=== PATIENT | female | born 1930 | race Caucasian/White ===

== ENCOUNTER 2017-11-13 15:16 | Inpatient (IN) | payer MEDICARE, BC ==
[2017-11-13] MEDS: ACETAMINOPHEN 325 MG TAB PO ×2 (16:31→22:44)
[2017-11-13 16:40] LABS: ADD MAN DIFF? NO
[2017-11-13 16:43] LABS: BASOPHILS % 0.7 % (0.0-2.0); EOSINOPHILS # 0.3 10^3/ul (0.0-0.5); EOSINOPHILS % 5.4 % (0.0-7.0); HEMATOCRIT 42.4 % (37.0-47.0); HEMOGLOBIN 13.9 g/dl (12.0-16.0); LYMPHOCYTES # 1.2 10^3/ul (0.8-2.9); LYMPHOCYTES % 18.9 % (15.0-51.0); MEAN CORPUSCULAR HEMOGLOBIN 32.2 pg (29.0-33.0); MEAN CORPUSCULAR HGB CONC 32.8 g/dl (32.0-37.0); MEAN CORPUSCULAR VOLUME 98.1 fl (82.0-101.0); MEAN PLATELET VOLUME 10.2 fl (7.4-10.4); MONOCYTE # 0.6 10^3/ul (0.3-0.9); MONOCYTES % 10.2 % (0.0-11.0); NEUTROPHIL # 3.9 10^3/ul (1.6-7.5); NEUTROPHILS % 64.5 % (39.0-77.0); PLATELET COUNT 187 10^3/UL (140-415); RED BLOOD COUNT 4.32 10^6/ul (4.20-5.40); RED CELL DISTRIBUTION WIDTH 12.6 % (11.5-14.5)
[2017-11-13 16:43] LABS: WHITE BLOOD COUNT 6.1 10^3/ul (4.8-10.8)
[2017-11-13 17:17] LABS: ANION GAP 9 (8-16); BLOOD UREA NITROGEN 17 mg/dl (7-20); CALCIUM 9.8 mg/dl (8.4-10.2); CARBON DIOXIDE 31 mmol/L (21-31); CHLORIDE 106 mmol/L (97-110); GLUCOSE 87 mg/dl (70-220); POTASSIUM 4.1 mmol/L (3.5-5.1); SODIUM 142 mmol/L (135-144)
[2017-11-13 17:30] LABS: TROPONIN-I < 0.012 ng/ml (0.00-0.12)
[2017-11-13 19:28] LABS: URINE BLOOD (Dip) POC Trace-intact (NEGATIVE); URINE GLUCOSE (Dip) POC Negative (NEGATIVE); URINE KETONES (Dip) POC Negative (NEGATIVE); URINE LEUKOCYTE EST (Dip) POC Trace (NEGATIVE); URINE NITRITE (Dip) POC Negative (NEGATIVE); URINE TOTAL PROTEIN POC Negative (NEGATIVE)
[2017-11-13] MEDS ORDERED: ONDANSETRON 4 MG INJ IV ×2 (20:00→22:30)
[2017-11-13 21:48] LABS: ADD UMIC YES; UR ASCORBIC ACID NEGATIVE (NEGATIVE); UR BACTERIA FEW /HPF (NONE SEEN); UR BILIRUBIN (Dip) NEGATIVE (NEGATIVE); UR BLOOD (Dip) NEGATIVE (NEGATIVE); UR CALCIUM OXALATE CRYSTAL MANY /HPF (NONE SEEN); UR CLARITY CLOUDY (CLEAR); UR COLOR YELLOW (YELLOW); UR GLUCOSE (Dip) NEGATIVE (NEGATIVE); UR KETONES (Dip) NEGATIVE (NEGATIVE); UR LEUKOCYTE ESTERASE (Dip) TRACE Leu/ul (NEGATIVE); UR NITRITE (Dip) NEGATIVE (NEGATIVE); UR RBC 8 /HPF (0-5); UR SPECIFIC GRAVITY (Dip) 1.021 (1.003-1.030); UR SQUAMOUS EPITHELIAL CELL FEW /HPF (FEW); UR TOTAL PROTEIN (Dip) NEGATIVE (NEGATIVE); UR UROBILINOGEN (Dip) NEGATIVE (NEGATIVE); UR WBC 7 /HPF (0-5)
[2017-11-13] MEDS ORDERED: ZOLPIDEM 5 MG TAB PO (22:30)
[2017-11-13] MEDS: hydrALAzine 20 MG INJ IV (22:44)
[2017-11-14] MEDS: hydrALAzine 20 MG INJ IV ×2 (06:31→15:01)
[2017-11-14] MEDS: ASPIRIN 81 MG TAB PO (08:32)
[2017-11-14] MEDS: CHOLECALCIFEROL 2,000 UNIT CAP PO (08:32)
[2017-11-14] MEDS: SERTRALINE 50 MG TAB PO (08:33)
[2017-11-14] MEDS: MEMANTINE 10 MG TAB PO ×2 (08:33→21:01)
[2017-11-14] MEDS: LOSARTAN 50 MG TAB PO (08:34)
[2017-11-14] MEDS: ACETAMINOPHEN 325 MG TAB PO ×2 (08:41→16:20)
[2017-11-14] MEDS: AMLODIPINE 5 MG TAB PO (16:10)
[2017-11-14] MEDS: traMADol 50 MG TAB PO (17:57)
[2017-11-14] MEDS: MONTELUKAST 10 MG TAB PO (21:01)
[2017-11-14] MEDS: DONEPEZIL 10 MG TAB PO (21:01)
[2017-11-15] MEDS: hydrALAzine 20 MG INJ IV (00:39)
[2017-11-15] MEDS: CHOLECALCIFEROL 2,000 UNIT CAP PO (09:09)
[2017-11-15] MEDS: AMLODIPINE 5 MG TAB PO (09:09)
[2017-11-15] MEDS: ASPIRIN 81 MG TAB PO (09:10)
[2017-11-15] MEDS: MEMANTINE 10 MG TAB PO ×2 (09:10→20:20)
[2017-11-15] MEDS: LOSARTAN 50 MG TAB PO (09:10)
[2017-11-15] MEDS: SERTRALINE 50 MG TAB PO (09:12)
[2017-11-15] MEDS: traMADol 50 MG TAB PO ×2 (10:56→20:20)
[2017-11-15] MEDS: predniSONE 20 MG TAB PO (12:45)
[2017-11-15] MEDS: CELECOXIB 100 MG CAP PO ×2 (13:20→20:20)
[2017-11-15] MEDS: MONTELUKAST 10 MG TAB PO (20:21)
[2017-11-15] MEDS: DONEPEZIL 10 MG TAB PO (20:21)
[2017-11-16] MEDS: SERTRALINE 50 MG TAB PO (09:30)
[2017-11-16] MEDS: CHOLECALCIFEROL 2,000 UNIT CAP PO (09:30)
[2017-11-16] MEDS: MEMANTINE 10 MG TAB PO ×2 (09:30→20:30)
[2017-11-16] MEDS: predniSONE 10 MG TAB PO (09:30)
[2017-11-16] MEDS: AMLODIPINE 5 MG TAB PO (09:31)
[2017-11-16] MEDS: ASPIRIN 81 MG TAB PO (09:31)
[2017-11-16] MEDS: CELECOXIB 100 MG CAP PO (09:31)
[2017-11-16] MEDS: LOSARTAN 50 MG TAB PO (09:31)
[2017-11-16] MEDS: traMADol 50 MG TAB PO ×2 (10:50→19:06)
[2017-11-16] MEDS: FOSFOMYCIN 3 GM PACKET PO (12:53)
[2017-11-16] MEDS: DONEPEZIL 10 MG TAB PO (20:29)
[2017-11-16] MEDS: MONTELUKAST 10 MG TAB PO (20:29)
[2017-11-16] MEDS: CELECOXIB 200 MG CAP PO (20:29)
[2017-11-16] MEDS: ACETAMINOPHEN 325 MG TAB PO (20:30)
[2017-11-17] MEDS: hydrALAzine 20 MG INJ IV (03:01)
[2017-11-17] MEDS: traMADol 50 MG TAB PO ×2 (05:40→17:53)
[2017-11-17] MEDS: SERTRALINE 50 MG TAB PO (08:09)
[2017-11-17] MEDS: CELECOXIB 200 MG CAP PO (08:09)
[2017-11-17] MEDS: MEMANTINE 10 MG TAB PO (08:10)
[2017-11-17] MEDS: CHOLECALCIFEROL 2,000 UNIT CAP PO (08:10)
[2017-11-17] MEDS: predniSONE 10 MG TAB PO (08:10)
[2017-11-17] MEDS: AMLODIPINE 5 MG TAB PO (08:19)
[2017-11-17] MEDS: LOSARTAN 50 MG TAB PO (08:20)
[2017-11-17] MEDS: ASPIRIN 81 MG TAB PO (08:20)
== END 2017-11-17 18:20 | DRG 309 ==
LOC: E/R 15:16 → TEL 20:56
DX: I44.0 Atrioventricular block, first degree (principal); S32.019A Unspecified fracture of first lumbar vertebra, initial encounter for closed fracture; N39.0 Urinary tract infection, site not specified; M80.08XA Age-related osteoporosis with current pathological fracture, vertebra(e), initial encounter for fracture; R00.1 Bradycardia, unspecified; G30.9 Alzheimer's disease, unspecified; F02.80 Dementia in other diseases classified elsewhere, unspecified severity, without behavioral disturbance, psychotic disturbance, mood disturbance, and anxiety; W19.XXXA Unspecified fall, initial encounter; Y92.003 Bedroom of unspecified non-institutional (private) residence as the place of occurrence of the external cause; R51 Headache
CPT/HCPCS: 36415; 70450; 71045; 72100; 72148; 73630-LT; 80048; 81001; 81003; 84484; 85025; 93005; 97163; 99285-25; G0378